=== PATIENT | male | born 2000 | race Caucasian/White ===

== ENCOUNTER 2023-06-19 21:33 | Outpatient (REF) | payer OTHER, SELFPAY ==
[2023-06-19 21:53] LABS: Abs Immature Grans 0.01 10^3/uL (0.0-0.06); Absolute Basophil Count 0.04 10^3/uL (0.0-0.2); Absolute Eosinophil Count 0.21 10^3/uL (0.0-0.7); Absolute Lymphocyte Count 2.09 10^3/uL (1.2-3.4); Absolute Monocyte Count 0.45 10^3/uL (0.1-0.8); Absolute Neutrophil Count 2.23 10^3/uL (1.2-6.7); Basophils % 0.8; Eosinophils % 4.2; HCT 44.4 % (40.0-50.0); HGB 15.1 g/dL (13.5-17.5); Immature Grans % 0.2; Lymphocytes % 41.6; MCH 29.1 pg (27.0-33.0); MCV 86 fL (80-95); MPV 10.9 fL (8.0-11.0); Monocytes % 8.9; Neutrophils % 44.3; Platelet Count 226 10^3/uL (130-400); RBC 5.19 10^6/uL (4.36-5.78); RDW 12.7 % (11.8-14.1); RDW-SD 39.4 fL; WBC 5.03 10^3/uL (4.4-10.8)
[2023-06-19 22:15] LABS: ALT 15 U/L (16-63); AST 12 U/L (15-37); Albumin 4.4 g/dL (3.4-5.0); Alkaline Phosphatase 95 U/L (46-116); Anion Gap 6.6 mmol/L (3-11); BUN 20 mg/dL (7-18); Bilirubin, Total 0.8 mg/dL (0.2-1.0); CO2 33.4 mmol/L (21.0-32.0); Calcium 10.1 mg/dL (8.5-10.1); Chloride 103 mmol/L (98-107); Estimated GFR 109.81 (mL/min/1.73m2); Glucose 81 mg/dL (74-106); Lipase 43 U/L (16-77); Potassium 4.2 mmol/L (3.5-5.1); Sodium 143 mmol/L (136-145); Total Protein 7.1 g/dL (6.4-8.2)
== END 2023-06-19 21:34 | disposition home or self-care (01) ==
LOC: NCHCN 21:33
PROVIDERS: Visit Provider Family Medicine
DX: R53.83 Other fatigue (principal)
CPT/HCPCS: 80053; 83690; 85025